=== PATIENT | male | born 1955 | race Asian ===

== ENCOUNTER → 2020-06-29 13:09 | Outpatient (CLI) | payer OTHER, SELFPAY ==
[2020-06-29] MEDS: COVID-19 VACC #1, MRNA(MOD) 100 MCG/0.5 ML VIAL IM (13:17)
== END ==
PROVIDERS: Visit Provider Internal Medicine
DX: Z23 Encounter for immunization (principal)
CPT/HCPCS: 0011A; 91301

== ENCOUNTER → 2020-07-28 13:03 | Outpatient (CLI) | payer OTHER, SELFPAY ==
[2020-07-28] MEDS: COVID-19 VACC #2, MRNA(MOD) 100 MCG/0.5 ML VIAL IM (13:09)
== END ==
PROVIDERS: Visit Provider Internal Medicine
DX: Z23 Encounter for immunization (principal)
CPT/HCPCS: 0012A; 91301